=== PATIENT | male | born 1970 | race Caucasian/White ===

== ENCOUNTER → 2024-02-29 | Day surgery (SDC) | payer BC ==
[~2024-02-29] MED LIST: ALEVE220 M1; DEXMEDETOMIDINE HCL 200 MCG/2 ML VIAL ONE; LIDOCAINE HCL 2% LOCAL INJ 5 ML SDV VIAL INJ ONE; MIDAZOLAM HCL 2 MG/2 ML VIAL ONE; PROPOFOL IV EMULSION 10 MG/ML 50 ML VIAL IV ONE; PROTONIX20 MG PO
[2024-02-29] MEDS: LACTATED RINGER'S 1,000 ML ONE (08:19)
[2024-02-29 10:13] VITALS: TEMP 97.5
[2024-02-29 10:53] VITALS: BP 116/78; PULSE 65; RESP 18; O2SAT 95
== END | disposition home or self-care (01) ==
LOC: OR 07:40
PROVIDERS: ATTEND Internal Medicine Gastroenterology
DX: Z12.11 Encounter for screening for malignant neoplasm of colon (principal); D12.0 Benign neoplasm of cecum; K64.8 Other hemorrhoids; K21.9 Gastro-esophageal reflux disease without esophagitis; M19.90 Unspecified osteoarthritis, unspecified site; Z01.810 Encounter for preprocedural cardiovascular examination; Z79.1 Long term (current) use of non-steroidal anti-inflammatories (NSAID)
CPT/HCPCS: 45380; 45385; 93005; J2001; J2250; J2704; J7121; 45378